=== PATIENT | female | born 1960 ===

== ENCOUNTER 2022-11-20 07:59 | Outpatient (AMB) | payer OTHER, SELFPAY ==
--- NOTE | 2022-11-20 08:03 | A.OFFVIS_ITS ---
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 The headaches are parietal or temporal, unilateral throbbing pain,with occasional nausea, photophobia. There was few episodes of visual aura many years ago. she treats her self with tylenol , excedrin or motrin and it helps. It can last few hours. She missed 1 day at work because of migraines about 10 years ago. In her 50 s she had 2-3 headaches /week . Now she has about 3-4 headaches a year. Her last headaches were in Apr 2022 and she had some transient tingling in her feet which has resolved since then SHe sleeps ok No snoring.she has gasping arousals when she sleeps supine so she sleeps on her side No daytime fatigue. she has neck pain and stiffness. 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 [facility] Medical History (Updated 11/20/22 @ 11:21 by Berkley Delarosa MD) Hyperlipidemia Hypothyroidism Migraine Neck pain Urticaria, chronic Surgical History H/O endoscopy History of endometrial ablation Hx of colonoscopy Family History Mother Meningeal disorder Father Parkinson disease Maternal Grandmother Stroke Son Diabetes Asthma Family/Other Graves disease Social History Alcohol intake: current Patient Tobacco Use Status: Never used Tobacco Review of Systems Const Reports difficulty sleeping and Reports headache(s) Eyes Reports no additional complaints ENT Reports headache(s) and Reports neck pain Musc Reports neck pain Neuro Reports headache(s) Physical Exam Vital Signs: Last Vital Signs Pulse 75 11/20/22 08:11 BP 102/72 11/20/22 08:11 Pulse Ox 97 11/20/22 08:11 Oxygen Delivery Method Room Air 11/20/22 08:11 BMI result Body Mass Index 30.1 Const General: cooperative, healthy appearing, comfortable and no acute distress Nutritional Appearance: average body habitus Orientation/consciousness: patient oriented x3 Eyes Pupils: Equal, round and reactive pupils present Neuro Other: mild neck tightness General: patient oriented x3, gait normal, tone normal, moves all extremities and no focal motor deficits Cranial nerves: Yes Facial sensation intact/muscles of mastication intact, Yes Equal, round and reactive pupils present, Yes Bilaterally intact EOM present, Yes Nystagmus not present, Yes Normal facial strength present and Yes Midline tongue present Cognition (Neuro): normal cognition Gait exam (Neuro): Normal gait present Motor exam (neuro): 5/5 motor strength present throughout and Normal motor muscle tone present throughout Deep tendon reflexes (DTR's): Right triceps reflex intensity grade: 2+, Left triceps reflex intensity grade: 2+, Rt Biceps (C5, C6): 2+, Left biceps reflex intensity grade: 2+, Right brachioradialis reflex intensity grade: 2+, Left brachioradialis reflex intensity grade: 2+, Right patellar reflex intensity grade: 2+ and Left patellar reflex intensity grade: 2+ Coordination: [id number] test normal Psych Appearance: grossly normal Assessment & Plan Assessment & Plan (1) Migraine: Code(s): G43.909 - Migraine, unspecified, not intractable, without status migrainosus (2) Neck pain: Code(s): M54.2 - Cervicalgia Plan Patient is doing well now I suggested to continue magnesium 400mg qhs Neck exercises. Coding Level of Care Code New Pt Level 4 (86151) Diagnoses Migraine G43.909 Neck pain M54.2
[2022-11-20 08:11] VITALS: BP 102/72; PULSE 75; O2SAT 97; BMI 30.1
== END 2022-11-20 08:44 | disposition home or self-care (01) ==
PROVIDERS: Visit Provider Psychiatry & Neurology Neurology
DX: G43.909 Migraine, unspecified, not intractable, without status migrainosus (principal); M54.2 Cervicalgia
CPT/HCPCS: 99204

== ENCOUNTER → 2022-11-20 07:59 | Outpatient (BNVA) | payer OTHER, SELFPAY | PROVIDERS: Visit Provider Psychiatry & Neurology Neurology ==

== ENCOUNTER 2023-04-19 10:33 | Outpatient (AMB) | payer OTHER, SELFPAY ==
--- NOTE | 2023-04-19 10:54 | MHC.PC.OV ---
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 [phone] Allergies No Known Allergies Allergy (Verified 11/20/22 08:04) PFSH Medical History (Updated 11/20/22 @ 11:21 by Berkley Delarosa MD) Migraine Hyperlipidemia Urticaria, chronic Neck pain Hypothyroidism Surgical History History of endometrial ablation H/O endoscopy Hx of colonoscopy Family History Mother Meningeal disorder Father Parkinson disease Maternal Grandmother Stroke Son Diabetes Asthma Family/Other Graves disease Social History Alcohol intake: current Patient Tobacco Use Status: Never used Tobacco Physical exam (Primary Care) Tobacco/Smoking Status: Tobacco use Status Patient Tobacco Use Status Never used Tobacco 11/20/22 08:11 Coding
[2023-04-19 12:13] VITALS: BP 132/64; PULSE 102; TEMP 36.6; O2SAT 99; BMI 32.1
--- NOTE | 2023-04-19 12:13 | MHC.OFFWIV ---
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 States home covid test was negative. Feeling short of breath with coughing fits. PFS Medical History Migraine Hyperlipidemia Urticaria, chronic Neck pain Hypothyroidism Surgical History History of endometrial ablation H/O endoscopy Hx of colonoscopy Family History Mother Meningeal disorder Father Parkinson disease Maternal Grandmother Stroke Son Diabetes Asthma Family/Other Graves disease Social History Alcohol intake: current Patient Tobacco Use Status: Never used Tobacco Review of Systems Const All systems reviewed & are unremarkable except as noted in HPI and below Physical Exam Vital Signs: Last Vital Signs Temp 98 F 04/19/23 12:13 Pulse 102 H 04/19/23 12:13 BP 132/64 04/19/23 12:13 Pulse Ox 99 04/19/23 12:13 Oxygen Delivery Method Room Air 04/19/23 12:13 BMI result Body Mass Index 32.1 Const General: cooperative and ill appearing acutely HEENT Head: Yes normal to inspection and Yes normocephalic Ears: hearing grossly normal bilaterally General nose exam: Normal external nose present and Nasal discharge present mucoid Mouth: Normal oral and palatal mucosa present Throat: Yes posterior oropharynx normal Neck Neck: Yes no lymphadenopathy Resp Effort & Inspection: Actively coughing Quality: productive Auscultation: wheezes (otherwise clear. Actively coughing. ) upper bilaterally Cardio Palpation: normal PMI Rate: regular rate Rhythm: regular rhythm Skin General skin exam: no rashes or lesions noted Extrem General: Yes capillary refill normal and Yes no clubbing, cyanosis or edema Psych Appearance: grossly normal Mental Status: mental status grossly normal Speech and movement: Normal speech and movement present Assessment & Plan Assessment & Plan (1) Acute bronchitis: Code(s): J20.9 - Acute bronchitis, unspecified Qualifiers: Bronchitis organism: unspecified organism Qualified Code(s): J20.9 - Acute bronchitis, unspecified Plan: Will start patient on abx and benzonatate. Cough is persistent and productive. She declines viral testing. Reviewed indications, use, possible s/e of medication. I advised she continue to hydrate, rest, drink tea with honey, take multivitamins, and otc Tylenol/Motrin as needed for any head or body aches. If she does not improve with time and treatment she can return to the clinic for further evaluation. She agrees to plan. Medications: New azithromycin For 250 mg dose pack: take 500 mg today (day 1), then 250 mg for 4 days (days 2-5) PO Do not take Hydroxyzine while taking this medication. 6 tabs 0RF J20.9 - Acute bronchitis, unspecified benzonatate 100 mg PO BID 7 days PRN 14 caps 0RF cough R05.9 - Cough, unspecified Coding Level of Care Code Est Pt Level 3 (03248) Diagnoses Acute bronchitis, unspecified organism J20.9 Bronchitis organism: unspecified organism
== END 2023-04-19 12:57 | disposition home or self-care (01) ==
PROVIDERS: PCP Internal Medicine; Visit Provider Nurse Practitioner Family
DX: J20.9 Acute bronchitis, unspecified (principal)
CPT/HCPCS: 99213